=== PATIENT | female | born 1995 | race Caucasian/White ===

== ENCOUNTER 2017-08-22 09:07 | Emergency (ER) | payer OTHER | END 2017-08-22 09:34 | disposition home or self-care (01) | LOC: FTE 09:07 | DX: J02.9 Acute pharyngitis, unspecified (principal) | CPT/HCPCS: 99283; Z7502 ==

== ENCOUNTER 2018-04-05 22:51 | Emergency (ER) | payer OTHER ==
[2018-04-06 01:16] LABS: URINE BLOOD (Dip) POC 3+ (NEGATIVE); URINE GLUCOSE (Dip) POC Negative (NEGATIVE); URINE KETONES (Dip) POC Negative (NEGATIVE); URINE LEUKOCYTE EST (Dip) POC 3+ (NEGATIVE); URINE NITRITE (Dip) POC Positive (NEGATIVE); URINE TOTAL PROTEIN POC Trace (NEGATIVE)
[2018-04-06] MEDS: NITROFURANTOIN (SR) 100 MG CAP PO (01:36)
== END 2018-04-06 01:40 | disposition home or self-care (01) ==
LOC: FTE 22:51
DX: N30.01 Acute cystitis with hematuria (principal); R40.2412 Glasgow coma scale score 13-15, at arrival to emergency department
CPT/HCPCS: 81003; 81025; 87591; 99283